=== PATIENT | female | born 1960 | race Two or more races ===

== ENCOUNTER 2017-01-31 09:47 | Outpatient (CLI) | payer BC | END 2017-01-31 23:59 | disposition home or self-care (01) | LOC: RAD 09:47 | DX: I70.0 Atherosclerosis of aorta (principal); M47.894 Other spondylosis, thoracic region; M25.78 Osteophyte, vertebrae | CPT/HCPCS: 71020-TC ==

== ENCOUNTER 2017-04-02 09:50 | Outpatient (CLI) | payer OTHER | END 2017-04-02 23:59 | disposition home or self-care (01) | LOC: MRI 09:50 | DX: M23.221 Derangement of posterior horn of medial meniscus due to old tear or injury, right knee (principal); M25.461 Effusion, right knee; M65.861 Other synovitis and tenosynovitis, right lower leg; X58.XXXD Exposure to other specified factors, subsequent encounter | CPT/HCPCS: 73721-TC ==

== ENCOUNTER 2020-02-09 06:03 | Emergency (ER) | payer BC, OTHER ==
[~2020-02-09] VITALS: Ht 152.4 cm; Wt 68.0 kg
--- NOTE | 2020-02-09 06:05 | NUR ---
PT BIBSELF C/O CONSTANT MIDSTERNAL CHEST PAIN RADIATING TO BACK X2 DAYS. PT ALSO C/O NAUSEA AND DIFFICULTY TAKING IN DEEP BREATH. PT AAOX4. RESPIRATIONS EVEN AND UNLABORED. SKIN WARM AND INTACT. VITAL SIGNS STABLE. AMBUALTORY WITH STEADY GAIT. NO ACUTE DISTRESS NOTED AT THIS TIME. 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 WILL CONTINUE TO MONITOR
[2020-02-09] MEDS ORDERED: MORPHINE SULFATE INJ 2 MG/ML DISP.SYRIN ONE (06:23)
[2020-02-09] MEDS ORDERED: MORPHINE SULFATE INJ 2 MG/ML DISP.SYRIN IV ONE (06:30)
--- NOTE | 2020-02-09 06:30 | NUR ---
PT STATED THAT THE GENERALIZED BODY ACHES, LOSS OF TASTE AND LOSS OF SMELL, MID STERNAL CHEST PAIN STARTED 2 DAYS AGO AND WAS RELIEVED BY TYLENOL. TODAY THE TYLENOL IS NOT WORKING.
--- NOTE | 2020-02-09 06:35 | NUR ---
PT REC'D MEDICATION ORDERED. PT IS ON THE MONITOR AND CONTINUOUS PULSE OX.
[2020-02-09 06:38] LABS: BASOPHILS % (AUTO) 0.5 % (0.0-2.0); EOSINOPHILS % (AUTO) 0.2 % (0.0-6.0); HEMATOCRIT 43 % (33-45); HEMOGLOBIN 13.9 g/dL (11.5-14.8); LYMPHOCYTES # (AUTO) 2.2 /CMM (0.8-4.8); MEAN CORPUSCULAR HGB CONC 33 g/dl (31.0-36.0); MEAN CORPUSCULAR VOLUME 91 fL (82-100); MONOCYTES # (AUTO) 0.5 /CMM (0.1-1.30); MONOCYTES % (AUTO) 7.8 % (2.0-12.0); NEUTROPHILS # (AUTO) 3.6 /CMM (1.8-8.9); NEUTROPHILS % (AUTO) 56.5 % (43.0-81.0); PLATELET COUNT (AUTO) 249 /CMM (150-450); WHITE BLOOD COUNT (AUTO) 6.4 K/uL (4.3-11.0)
--- NOTE | 2020-02-09 06:45 | NUR ---
CXR IN PROGRESS AT THE BEDSIDE.
--- NOTE | 2020-02-09 06:53 | NUR ---
XRAY FINISHED AT THE BEDSIDE.
[2020-02-09 06:56] LABS: CALCIUM, SERUM 8.7 mg/dL (8.5-10.1); CARBON DIOXIDE 30 mmol/L (21-32); CHLORIDE 100 mmol/L (98-107); CREATININE 0.7 mg/dL (0.6-1.3); GLUCOSE 115 mg/dL (74-106); POTASSIUM 3.7 mmol/L (3.5-5.1); SODIUM SERUM 137 mmol/L (136-145); UREA NITROGEN, BLOOD 15 mg/dL (7-18)
[2020-02-09 07:02] LABS: ALANINE AMINOTRANSFERASE 49 U/L (12-78); ALBUMIN 3.9 g/dL (3.4-5.0); ALKALINE PHOSPHATASE 76 U/L (46-116); ASPARTATE AMINOTRANSFERASE 38 U/L (15-37); BILIRUBIN,DIRECT 0.1 mg/dL (0.0-0.2); BILIRUBIN,TOTAL 0.6 mg/dL (0.2-1.0); TOTAL PROTEIN, SERUM 8.4 g/dL (6.4-8.2)
[2020-02-09 07:51] VITALS: BP 141/74
--- NOTE | 2020-02-09 07:51 | NUR ---
Patient discharged to home in stable condition. Written and verbal after care instructions given. Patient verbalizes understanding of instruction.IV removed. Catheter intact and site benign. Pressure and 4x4 applied to site. No bleeding noted.
--- NOTE | 2020-02-10 05:36 | NUR ---
ATTEMPTED TO CONTACT PT REGARDING COVID RESULT. VOICEMAIL LEFT.
== END 2020-02-09 07:51 | disposition home or self-care (01) ==
LOC: ER 06:05
DX: U07.1 COVID-19 (principal); R07.89 Other chest pain; R43.8 Other disturbances of smell and taste
CPT/HCPCS: 36415; 71045; 76705; 80048; 80076; 83690; 84484; 85025; 93005; 96374; 99285; C9803; J2270; U0003

== ENCOUNTER 2020-05-13 11:36 | Outpatient (CLI) | payer BC, OTHER ==
[2020-05-13 13:47] LABS: BASOPHILS % (AUTO) 0.6 % (0.0-2.0); HEMATOCRIT 42 % (33-45); LYMPHOCYTES # (AUTO) 3.2 /CMM (0.8-4.8); LYMPHOCYTES % (AUTO) 41.7 % (20.0-44.0); MEAN CORPUSCULAR HGB CONC 33 g/dl (31.0-36.0); MEAN CORPUSCULAR VOLUME 92 fL (82-100); MONOCYTES # (AUTO) 0.4 /CMM (0.1-1.30); MONOCYTES % (AUTO) 5.3 % (2.0-12.0); NEUTROPHILS # (AUTO) 3.9 /CMM (1.8-8.9); NEUTROPHILS % (AUTO) 51.4 % (43.0-81.0); PLATELET COUNT (AUTO) 306 /CMM (150-450); RED BLOOD CELL COUNT(AUTO) 4.57 MIL/uL (4.0-5.2); WHITE BLOOD COUNT (AUTO) 7.6 K/uL (4.3-11.0)
[2020-05-13 14:46] LABS: BILIRUBIN,TOTAL 0.8 mg/dL (0.2-1.0); CALCIUM, SERUM 9.2 mg/dL (8.5-10.1); CREATININE 0.6 mg/dL (0.6-1.3); POTASSIUM 3.7 mmol/L (3.5-5.1); TOTAL PROTEIN, SERUM 8.3 g/dL (6.4-8.2)
[2020-05-13 14:47] LABS: URIC ACID 5.6 mg/dL (2.6-7.2)
== END 2020-05-13 23:59 | disposition home or self-care (01) ==
LOC: RAD 11:36
PROVIDERS: ATTEND Family Medicine
DX: E55.9 Vitamin D deficiency, unspecified (principal); M77.32 Calcaneal spur, left foot; M85.811 Other specified disorders of bone density and structure, right shoulder; I70.0 Atherosclerosis of aorta
CPT/HCPCS: 36415; 73030-TC; 73610-TC; 80053-TC; 82306; 84550-TC; 85025-TC; 86431-TC

== ENCOUNTER 2020-08-17 10:14 | Outpatient (CLI) | payer BC, OTHER | END 2020-08-17 23:59 | disposition home or self-care (01) | LOC: MRI 10:14 | PROVIDERS: ATTEND Family Medicine | DX: S46.011A Strain of muscle(s) and tendon(s) of the rotator cuff of right shoulder, initial encounter (principal); M25.411 Effusion, right shoulder; M65.811 Other synovitis and tenosynovitis, right shoulder; M75.91 Shoulder lesion, unspecified, right shoulder; X58.XXXA Exposure to other specified factors, initial encounter; Y93.89 Activity, other specified; Y92.89 Other specified places as the place of occurrence of the external cause; Y99.8 Other external cause status | CPT/HCPCS: 73221-TC ==